=== PATIENT | female | born 1995 | race Caucasian/White ===

== ENCOUNTER 2020-09-25 17:16 | Emergency (ER) | payer MEDICAID ==
[~2020-09-25] VITALS: Ht 165.1 cm; Wt 48.8 kg
[2020-09-25 17:18] VITALS: BP 132/82
--- NOTE | 2020-09-25 18:17 | NUR ---
Patient given discharge instructions and they have confirmed that they understand the instructions. Patient ambulatory with steady gait.
== END 2020-09-25 18:19 | disposition home or self-care (01) ==
LOC: ED 18:00
DX: J01.90 Acute sinusitis, unspecified (principal); R51.9 Headache, unspecified; R09.81 Nasal congestion
CPT/HCPCS: 99283

== ENCOUNTER 2020-10-09 12:36 | Emergency (ER) | payer MEDICAID ==
[~2020-10-09] VITALS: Ht 165.1 cm; Wt 49.4 kg
[2020-10-09 12:57] VITALS: BP 110/46
--- NOTE | 2020-10-09 13:48 | NUR ---
[employer]: [facility]ULL[facility] ROOM FROM [facility]
--- NOTE | 2020-10-09 15:04 | NUR ---
PT WALKED OUT OF ER PER DR. COX
== END 2020-10-09 15:06 | disposition left against medical advice (07) ==
LOC: ED 15:00
DX: J30.89 Other allergic rhinitis (principal)
CPT/HCPCS: 99281

== ENCOUNTER 2020-10-29 16:20 | Emergency (ER) | payer MEDICAID ==
[~2020-10-29] VITALS: Ht 165.1 cm; Wt 50.0 kg
[2020-10-29 16:29] VITALS: BP 135/70
--- NOTE | 2020-10-29 16:37 | NUR ---
Pt brought back with chief complaint of possible sinus infection.
--- NOTE | 2020-10-29 16:41 | NUR ---
ER JOEY Carbone at bedside for eval
--- NOTE | 2020-10-29 16:51 | NUR ---
DC instructions reviewed.
== END 2020-10-29 16:56 | disposition home or self-care (01) ==
LOC: ED 16:30
DX: J32.0 Chronic maxillary sinusitis (principal)
CPT/HCPCS: 99281